=== PATIENT | male | born 1975 | race Caucasian/White ===

== ENCOUNTER 2018-02-27 17:54 | Emergency (ER) | END 2018-02-27 20:00 | disposition home or self-care (01) ==

== ENCOUNTER 2019-03-16 07:05 | Emergency (ER) | payer MEDICAID, OTHER ==
[~2019-03-16] VITALS: Ht 177.8 cm; Wt 90.0 kg
[~2019-03-16 07:05] MED LIST: HYDR-762 PO; NAPR-985 PO
[2019-03-16 07:32] VITALS: Ht 177.8 cm; Wt 90.0 kg
[2019-03-16] MEDS ORDERED: SOD CHLORIDE 0.9% 1,000 ML IV STA (07:40)
[2019-03-16] MEDS ORDERED: ONDANSETRON INJ 8 MG in DEXTROSE 5% 50 ML IV STA (07:40)
[2019-03-16] MEDS ORDERED: KETOROLAC 15 MG INJ IV STA (07:40)
[2019-03-16] MEDS ORDERED: ONDANSETRON 4 MG INJ ONE (07:49)
[2019-03-16] MEDS ORDERED: IBUP-1544 PO (11:56)
--- NOTE | 2019-03-16 12:13 | ERD ---
ER Documentation Chief Complaint Chief Complaint left lower abdominal pain since 3am, no n/v HPI This is a 43-year-old male with a past medical history of cluster headaches who is presenting with abdominal pain beginning suddenly this morning. The patient describes sudden onset periumbilical and left lower quadrant abdominal pain, sharp, colicky and pressure-like with associated nausea but no vomiting. This is never happened before. The patient does not endorse any abdominal history in the past. He does not endorse eating anything out of the ordinary. He does not report constipation or diarrhea. He did not indicate black or bloody or tarry stools. The patient does not endorse any hematuria or dysuria or urgency or fr equency. The patient denies feeling sick recently. The patient denies fever or chills. The patient has had no headache or vision changes. The patient does not endorse neck or back pain. The patient denies lightheadedness or dizziness. The patient has had no chest pain or trouble breathing. The patient has had no focal deficits. The patient has had no weakness or numbness or tingling to the face or extremities. ROS All systems reviewed and are negative except as per history of present illness. Medications Home Meds Active Scripts Naproxen* (Naprosyn*) 500 Mg Tablet, 500 MG PO BID PRN for PAIN AND/OR INFLAMMATION, #30 TAB Prov:CARMEL MONTERROSO PA-C 02/27/18 Hydrocodone Bit-Acetaminophen* (Tow*) 10-325 Mg Tablet, 1 TAB PO Q6 PRN for PAIN, #10 TAB Prov:BEVERLY FELIX [employer]OD [employer] 07/25/15 Allergies Allergies: Coded Allergies: No Known Allergy (Unverified , 11/27/13) PMhx/Soc History of Surgery: No Anesthesia Reaction: No Hx Neurological Disorder: Yes (cluster headaches) Hx Respiratory Disorders: No Hx Cardiac Disorders: No Hx Psychiatric Problems: No Hx Miscellaneous Medical Probl: No Hx Alcohol Use: Yes (Social) Hx Substance Use: No Hx Tobacco Use: Yes Smoking Status: Current every day smoker FmHx Family History: No diabetes Physical Exam Vitals Vital Signs Date Temp Pulse Resp B/P (MAP) Pulse Ox O2 O2 Flow FiO2 Time Delivery Rate 03/16/19 97.5 72 18 122/71 98 07:32 (88) Physical Exam Const: No acute distress Head: Atraumatic Eyes: Normal Conjunctiva ENT: Normal External Ears, Nose and Mouth. Neck: Full range of motion. No meningismus. Resp: Clear to auscultation bilaterally Cardio: Regular rate and rhythm, no murmurs Abd: Soft, non distended. Mild periumbilical and left lower quadrant abdominal pain. No guarding or rebound. Negative Tee sign. Negative McBurney's point. Negative Rovsing sign. Normal bowel sounds Skin: No petechiae or rashes Back: No midline or flank tenderness Ext: No cyanosis, or edema Neur: Awake and alert Psych: Normal Mood and Affect Result Diagram: 03/16/19 0759 03/16/19 0759 Results 24 hrs Laboratory Tests Test 03/16/19 07:59 03/16/19 08:57 White Blood Count 12.9 10^3/ul Red Blood Count 4.87 10^6/ul Hemoglobin 14.8 g/dl Hematocrit 44.8 % Mean Corpuscular Volume 92.0 fl Mean Corpuscular Hemoglobin 30.4 pg Mean Corpuscular Hemoglobin Concent 33.0 g/dl Red Cell Distribution Width 13.3 % Platelet Count 206 10^3/UL Mean Platelet Volume 9.9 fl Immature Granulocytes % 0.500 % Neutrophils % 82.8 % Lymphocytes % 12.2 % Monocytes % 3.9 % Eosinophils % 0.3 % Basophils % 0.3 % Nucleated Red Blood Cells % 0.0 /100WBC Immature Granulocytes # 0.060 10^3/ul Neutrophils # 10.7 10^3/ul Lymphocytes # 1.6 10^3/ul Monocytes # 0.5 10^3/ul Eosinophils # 0.0 10^3/ul Basophils # 0.0 10^3/ul Nucleated Red Blood Cells # 0.0 10^3/ul Sodium Level 139 mmol/L Potassium Level 4.0 mmol/L Chloride Level 104 mmol/L Carbon Dioxide Level 26 mmol/L Anion Gap 9 Blood Urea Nitrogen 16 mg/dl Creatinine 1.01 mg/dl Est Glomerular Filtrat Rate mL/min > 60 mL/min Glucose Level 154 mg/dl Calcium Level 9.9 mg/dl Total Bilirubin 0.4 mg/dl Direct Bilirubin 0.00 mg/dl Indirect Bilirubin 0.4 mg/dl Aspartate Amino Transf (AST/SGOT) 27 IU/L Alanine Aminotransferase (ALT/SGPT) 52 IU/L Alkaline Phosphatase 86 IU/L Total Protein 7.5 g/dl Albumin 4.2 g/dl Globulin 3.30 g/dl Albumin/Globulin Ratio 1.27 Lipase 25 U/L Urine Color YELLOW Urine Clarity CLOUDY Urine pH 5.0 Urine Specific [place] 1.026 Urine Ketones NEGATIVE mg/dL Urine Nitrite NEGATIVE mg/dL Urine Bilirubin NEGATIVE mg/dL Urine Urobilinogen NEGATIVE mg/dL Urine Leukocyte Esterase NEGATIVE Abdifatah/ul Urine Microscopic RBC 120 /HPF Urine Microscopic WBC 3 /HPF Urine Squamous Epithelial Cells FEW /HPF Urine Mucus MANY /HPF Urine Hemoglobin 3+ mg/dL Urine Glucose NEGATIVE mg/dL Urine Total Protein NEGATIVE mg/dl Current Medications Medications Dose Sig/Solitario Start Time Status Last (Trade) Ordered Route PRN Stop Time Admin Dose Reason Admin Sodium 1,000 ml @ Q1H STAT 03/16/19 DC 03/16/19 Chloride 1,000 mls/hr IV 07:40 08:14 03/16/19 08:39 Ondansetron 54 ml @ ONCE STAT 03/16/19 DC 03/16/19 HCl 8 200 mls/hr IV 07:40 08:14 mg/Dextrose 03/16/19 07:56 Ketorolac 15 mg ONCE STAT 03/16/19 DC 03/16/19 Tromethamine IV 07:40 08:14 (Toradol) 03/16/19 07:44 Ondansetron 4 mg STK-MED 03/16/19 DC HCl (Zofran ONCE .ROUTE 07:49 Inj) 03/16/19 07:50 Procedures/MDM MDM The patient's presentation warrants further investigation. Previous medical records, if available, were reviewed. LABS The patient's laboratory testing was obtained and reviewed. No emergent treatment was required unless described below. CBC: Leukocytosis, concerning for a possible infection. No E/o anemia or thrombocytopenia Chemistry: No E/o severe acidosis or alkalosis or renal failure or liver disease or diabetic ketoacidosis Lipase: No E/o pancreatitis Urine: No E/o acute infection. +Hematuria IMAGING Imaging and Radiology interpretation reviewed. CT abdomen pelvis FINDINGS: The visualized lung bases are clear. Linear atelectasis/scarring is seen in the lingula. There is subsegmental atelectasis in the right middle lobe. There is no pleural effusion. The liver is diffusely hypoattenuating representing hepatic steatosis. The gallbladder, spleen, pancreas, adrenal glands, and right kidney have normal noncontrast appearance. The left kidney is enlarged and edematous with mild left hydronephrosis and hydroureter up to the distal left ureteral calculus measuring 3 mm near the left ureterovesicular junction (series 3 image 171). There is asymmetric perinephric and periureteral fat stranding, related to the left distal ureteral calculus. There is no nephrolithiasis or of right urolithiasis. There is no right hydronephrosis. There is no evidence of intestinal obstruction. The appendix is enlarged in diameter measuring 9 mm (series 601 image 56). Minimal periappendiceal stranding is present. There is no free air or free intraperitoneal fluid. There is no retroperitoneal lymphadenopathy. The aorta is of normal diameter and appears atherosclerotic. Urinary bladder is normal. The prostate is enlarged measuring 6 .2 cm in transverse diameter. The osseous structures of the abdomen and pelvis are intact. Degenerative disc and endplate changes are seen at L4-L5. IMPRESSION: 1. An obstructing 3 mm left distal ureteral stone resulting in mild left hydronephrosis and hydroureter. 2. The appendix measures up to 9 mm in diameter, mildly dilated with minimal adjacent stranding which is nonspecific. Clinical correlation is advised to rule out acute early appendicitis. 3. Prostatomegaly. PSA correlation is advised. The findings were discussed with Dr. Marshall in the ER at 08:30 a.m. on 03/16/[address] Bernal. Electronically viewed and signed by Red Bernal, Physician on 03/16/2019 08:38 TREATMENT/DISPOSITION The patient presents with periumbilical and left lower quadrant abdominal pain. I was concerned about the possibility of nephrolithiasis given the hematuria. A CT of the abdomen and pelvis was completed that did reveal a 3 mm kidney stone on the left with obstruction and hydroureteronephrosis. The radiologist reports mild fat stranding as well, which could be inflammatory. I do not see evidence of a urinary tract infection at this time, but given the obstruction, I do feel that the patient may benefit from antibiotic treatment in outpatient setting. The patient was treated with IV fluids, Zofran and Toradol with complete resolution of his pain. The patient CT also reveals a dilated appendix with minimal adjacent stranding that is nonspecific. The patient's symptoms are not entirely consistent with appendicitis. I spoke to the on-call general surgeon, Dr. Hayden, who agreed that the patient may discharged with antibiotics and close follow-up. The patient should come back to the emergency department within the next 8 hours for reassessment or sooner if his symptoms change. I did give the patient his first dose of antibiotics in the emergency department today. The patient is afebrile with unremarkable vital signs. He is very well- appearing without any signs of a systemic infection. The patient is not septic and does not require a full septic work-up. The patient does not have any evidence of peritonitis. The patient does not have clinical symptoms concerning for mesenteric ischemia or ischemic colitis. The patient does not have right upper quadrant tenderness, and I have low suspicion for gallstones, cholecystitis or biliary colic. The patient does not have any epigastric pain. I have low suspicion for gastritis, PUD or GERD. The patient does not have left upper quadrant tenderness. I have low suspicion for pancreatitis. The patient does not have any left lower quadrant tenderness, and I have low suspicion for diverticulosis or diverticulitis. The patient does not have any palpable pulsatile mass or severe abdominal pain radiating to the back. I have low suspicion for aortic aneurysm, dissection or rupture. DISCHARGE Upon reevaluation of the patient, symptoms have improved. No emergent diagnoses were identified. At this time, I feel that the patient stable for discharge. The patient was instructed to follow-up with a primary care physician in 1-3 days. The patient will be given strict precautions with which to return to the emergency department. Prescriptions: Cipro, Flagyl, ibuprofen, oxycodone, Zofran, Flomax The patient's blood pressure was elevated at greater than 120/80 while in the emergency department. The patient was otherwise stable with no evidence of hypertensive urgency or emergency. The patient does not require admission for blood pressure control. I have discussed with the patient the risks of hypertension. I have instructed the patient to return to the ER for any new or worsening symptoms including chest pain, shortness of breath, headache, blurred vision, confusion, nausea, vomiting or LOC. I have advised the patient to follow up with the primary care physician for outpatient monitoring and treatment for hypertension in 1-3 days. Disclaimer: Inadvertent spelling and grammatical errors are likely due to EHR/dictation software use and do not reflect on the overall quality of patient care. Note that the electronic time recorded on this note does not necessarily reflect the actual time of the patient encounter. Departure Diagnosis: Primary Impression: Renal colic on left side Additional Impressions: Left lower quadrant abdominal pain Nausea Appendix disease Hematuria Hematuria type: other microscopic Qualified Codes: R31.29 - Other microscopic hematuria Hydroureteronephrosis Condition: Stable Patient Instructions: Abdominal Pain, Possible Appendicitis [Male], Hematuria, Kidney Stone W/ Colic Additional Instructions: Thank you for for coming to [facility] for your care today. Please ask your nurse or provider if you have questions about your care today and do not leave until all your questions have been answered. Please use any medications given as directed and follow-up with your doctor (or the doctor you were referred to) in the next 1-3 days. If you do not have a primary care doctor you may follow up at the [facility] or [facility] (listed below). You may also use motrin and tylenol as needed for fever and/or pain unless instructed otherwise by your provider or nurse. Indications for more urgent follow-up have been discussed, but you may return to the Emergency Department at ANY time for any worrisome or worsening symptoms. If you have abdominal pain, please know that no test or exam you received is perfect and you should follow up within 8 hours for continued pain. If you had any imaging studies today, such as an X-Ray or CT Scan, these studies will be reviewed later by a radiologist. You will be called if there are important findings that were not identified today, so make sure the contact information you provided at registration is correct. If you received any narcotic pain control medicine today, such as Vicodin, Morph ine or Dilaudid, your coordination and judgment may be affected for a number of hours. Please do not drive or operate heavy machinery, and you may want someone to assist you at home. If you were given a prescription for narcotic medication, be aware that it is very addictive- use sparingly and only if necessary. PLEASE SEEK FURTHER EVALUATION AND MANAGEMENT AT YOUR DOCTORS OFFICE WITHIN THE NEXT 1-3 DAYS. IT IS YOUR RESPONSIBILITY TO MAKE AN APPOINTMENT FOR FOLOW-UP CARE. IF YOU HAVE A PRIMARY DOCTOR, PLEASE CALL THEIR OFFICE TO SCHEDULE AN APPOINTMENT FOR FOLLOW UP. IF YOU DO NOT HAVE A PRIMARY DOCTOR YOU CAN CALL OUR PHYSICIAN REFERRAL HOTLINE AT IF YOU CAN NOT AFFORD TO SEE A PHYSICIAN YOU CAN CHOSE FROM THE FOLLOWING [facility]: [facility] [address] [facility] [address] [facility]. [facility] [address] [facility] [address] [facility] [address] [facility] [facility]. [address] VIOLETA TAMAYO MD Mar 16, 2019 11:41
[2019-03-16] MEDS ORDERED: CIPR500T4 PO (12:23)
[2019-03-16] MEDS ORDERED: METR500T PO (12:23)
[2019-03-16] MEDS ORDERED: TAMS-14 PO (12:23)
[2019-03-16] MEDS ORDERED: OXYC5CAP17 PO (12:23)
[2019-03-16] MEDS ORDERED: IBUP-1542 PO (12:23)
[2019-03-16] MEDS ORDERED: ONDA8TAB9 PO (12:23)
[2019-03-16 12:30] VITALS: BP 142/70; PULSE 80; RESP 18
[2019-03-16] MEDS ORDERED: CIPROFLOXACIN 400MG/D5W 200 ML IVPB ONE (12:30)
[2019-03-16] MEDS ORDERED: metroNIDAZOLE 500 MG/NS (PMX) 100 ML IVPB ONE (12:30)
== END 2019-03-16 12:32 | disposition home or self-care (01) ==
LOC: E/R 07:05
DX: N23 Unspecified renal colic (principal); F17.210 Nicotine dependence, cigarettes, uncomplicated; K38.9 Disease of appendix, unspecified; R31.29 Other microscopic hematuria; N13.30 Unspecified hydronephrosis
CPT/HCPCS: 36415; 74176; 80053; 81001; 83690; 85025; 96361; 96374; 96375; 99285; J1885; J2405; J7030